=== PATIENT | female | born 1980 | race Caucasian/White ===

== ENCOUNTER 2018-07-03 15:19 | Emergency (ER) | payer MEDICAID ==
--- NOTE | 2018-07-03 15:43 | ED Physician Documentation ---
PD HPI URI - Stated complaint Stated Complaint: SORE THROAT - Chief complaint Chief Complaint: General - History obtained from History obtained from: Patient - History of Present Illness Timing - onset: How many weeks ago (few weeks of fatigue, sore throat, some cough, wheezing, and weight loss. Feels weight is due to throat hurting acutely, but has had some for few months. Is having stress of divorce and is moving here recently from [facility] [place]. No local PCP. Is out of her cholesterol med, albuterol inhaler and anxiety meds ("but I don't want to be on those"). Has had problems at time with thyroid. not currently on any meds. Feeling dehydrated the past few days particularly with poor PO intake due to sore throat.) Timing duration: Weeks Timing details: Gradual onset, Waxing and waning Associated symptoms: Nasal congestion, Sore throat, Swollen nodes, Dry cough, Dyspnea (wheezing at times). No: Fever, Chills, Sweats, Productive cough Contributing factors: COPD / asthma. No: Sick contact, Immunocompromised Worsened by: Activity Recently seen: Not recently seen Review of Systems Constitutional: reports: Myalgias, Fatigue, Weight Loss Nose: reports: Congestion. denies: Rhinorrhea / runny nose Throat: reports: Sore throat Cardiac: denies: Chest pain / pressure Respiratory: reports: Cough, Wheezing GI: reports: Diarrhea (loose at times, with history of irritable bowel). 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 : None HEENT: None Psych: Depression, Anxiety, Panic attacks Musculoskeletal: Osteoarthritis, Fibromyalgia, Chronic back pain, Other Derm: None - Past Surgical History Past Surgical History: Yes General: EGD /REMOTE SENSING TECHNICIAN: Dilation and currettage - Present Medications Home Medications: Ambulatory Orders Medication Instructions Recorded Confirmed Albuterol Sulf [Ventolin Hfa 1 - 2 puffs INH Q4HR PRN #1 inhaler 07/03/18 Inhaler] Amoxicillin 500 mg PO TID #21 capsule 07/03/18 Atorvastatin [Lipitor] 10 mg PO DAILY #30 tablet 07/03/18 Dexamethasone [Decadron] 4 mg PO DAILY #5 tablet 07/03/18 Ondansetron Odt [Zofran] 4 mg TL Q6H PRN #10 tablet 07/03/18 - Allergies Allergies/Adverse Reactions: Allergies Allergy/AdvReac Type Severity Reaction Status Date / Time gabapentin Allergy Severe Loss of Verified 02/22/16 10:13 Muscle Control tramadol Allergy Severe Dizziness/L Verified 02/22/16 10:13 ightheaded venlafaxine HCl * Allergy Severe Hallucinati Verified 07/03/18 15:29 [From Effexor] ons - Social History Does the pt smoke?: No Smoking Status: Never smoker Does the pt drink ETOH?: No Does the pt have substance abuse?: No - Immunizations Immunizations are current?: Yes PD ED PE NORMAL - Vitals Vital signs reviewed: Yes - General General: Alert and oriented X 3, No acute distress, Well developed/nourished - HEENT HEENT: Ears normal. No: Pharynx benign (redness posteriorly with some tonsillar exudates. No peritonsillar edema. ) - Neck Neck: Supple, no meningeal sign, Other (anterior adenopathy mild, but tender. ) - Cardiac Cardiac: No: RRR (tachycardic but regular) - Respiratory Respiratory: Clear bilaterally - Abdomen Abdomen: Soft, Non tender, No organomegaly - Derm Derm: Normal color, Warm and dry, No rash - Neuro Neuro: Alert and oriented X 3, No motor deficit, Normal speech Results - Vitals Vitals: Vital Signs - 24 hr 07/03/18 07/03/18 15:27 17:17 Temperature 36.7 C 36.5 C Heart Rate 130 H 115 H Respiratory 20 18 Rate Blood Pressure 147/88 H 133/75 H O2 Saturation 95 97 Oxygen O2 Source Room air - EKG (time done) 17:12 Rate: Rate (enter#) (115) Rhythm: Sinus tachycardia [place]: Normal Intervals: Normal VT QRS: Normal Ischemia: Normal ST segments. No: ST elevation c/w ischemia, ST depression - Labs Labs: Laboratory Tests 07/03/18 07/03/18 07/03/18 16:20 16:20 16:20 WBC 12.6 H RBC 4.28 Hgb 15.4 Hct 44.7 MCV 104.6 H MCH 36.0 H MCHC 34.4 RDW 14.1 Plt Count 255 MPV 8.1 Neut # (Auto) 9.2 H Lymph # (Auto) 2.6 [place] # (Auto) 0.5 Eos # (Auto) 0.1 Baso # (Auto) 0.1 Absolute Nucleated RBC 0.01 Nucleated RBC % 0.1 Sodium 139 Potassium 3.5 Chloride 98 L Carbon Dioxide 25 Anion Gap 16.0 H BUN 10 Creatinine 0.5 Estimated GFR (MDRD) 137 Glucose 167 H Calcium 9.0 Total Bilirubin 0.7 AST 95 H ALT 66 H Alkaline Phosphatase 62 Total Protein 7.7 Albumin 4.3 Globulin 3.4 Albumin/Globulin Ratio 1.3 Triglycerides 129 Cholesterol 298 H LDL Cholesterol, Calc 160 H VLDL Cholesterol 26 HDL Cholesterol 112 LDL/HDL Ratio 1.4 Cholesterol/HDL Ratio 2.7 Lipase 28 TSH 1.37 PD MEDICAL DECISION MAKING - ED course Complexity details: considered differential (with sore throat mainly here but s he says it is limiting her oral intake and feels dehydrated. No vomiting. weight loss and fatigue for 1-2 months.), d/w patient Departure - Departure Disposition: 01 Home, Self Care Clinical Impression: Weight loss Pharyngitis Qualifiers: Pharyngitis/tonsillitis etiology: unspecified etiology Qualified Code(s): J02.9 - Acute pharyngitis, unspecified Condition: Stable Record reviewed to determine appropriate education?: Yes Instructions: ED Strep Pharyngitis Poss Follow-Up: [facility] [Provider Group] [facility] [Provider Group] Prescriptions: Albuterol Sulf [Ventolin Hfa Inhaler] 1 - 2 puffs INH Q4HR PRN #1 inhaler PRN Reason: Shortness Of Air/Wheezing Amoxicillin 500 mg PO TID #21 capsule Atorvastatin [Lipitor] 10 mg PO DAILY #30 tablet Dexamethasone [Decadron] 4 mg PO DAILY #5 tablet Ondansetron Odt [Zofran] 4 mg TL Q6H PRN #10 tablet PRN Reason: Nausea / Vomiting Discharge Date/Time: 07/03/18 17:19
[2018-07-03] MEDS ORDERED: CHERRY SYRUP 10 ML UDC PO ONE (16:08)
[2018-07-03] MEDS ORDERED: DEXAMETHASONE 10 MG/ML VIAL PO STA (16:08)
[2018-07-03] MEDS ORDERED: AMOXICILLIN 250 MG CAPSULE PO STA (16:08)
[2018-07-03 16:32] LABS: BASOPHILS # (AUTO) 0.1 10^3/uL (0.0-0.1); BASOPHILS % (AUTO) 1.1 %; EOSINOPHILS # (AUTO) 0.1 10^3/uL (0.0-0.7); EOSINOPHILS % (AUTO) 0.9 %; HGB - HEMOGLOBIN 15.4 g/dL (12.0-16.0); LYMPHOCYTES # (AUTO) 2.6 10^3/uL (1.5-3.5); LYMPHOCYTES % (AUTO) 20.5 %; MEAN CORPUSCULAR HGB CONC 34.4 g/dL (32.0-36.0); MEAN CORPUSCULAR VOLUME 104.6 fL (81.0-99.0); MEAN PLATELET VOLUME 8.1 fL (7.9-10.8); MONOCYTES # (AUTO) 0.5 10^3/uL (0.0-1.0); MONOCYTES % (AUTO) 4.3 %; NEUTROPHILS # (AUTO) 9.2 10^3/uL (1.5-6.6); NEUTROPHILS % (AUTO) 73.2 %; PLT - PLATELET COUNT 255 10^3/uL (130-450); RED BLOOD COUNT 4.28 10^6/uL (4.20-5.40); RED CELL DISTRIBUTION WIDTH 14.1 % (12.0-15.0); WHITE BLOOD COUNT 12.6 x10^3/uL (4.8-10.8)
[2018-07-03 16:44] LABS: ALBUMIN 4.3 g/dL (3.2-5.5); ALBUMIN/GLOBULIN RATIO 1.3 (1.0-2.2); ALKALINE PHOSPHATASE 62 IU/L (42-121); ALT ALANINE AMINOTRANSFERASE 66 IU/L (10-60); AST ASPARTATE AMINOTRANSFERASE 95 IU/L (10-42); BILIRUBIN,TOTAL 0.7 mg/dL (0.2-1.0); BUN - BLOOD UREA NITROGEN 10 mg/dL (6-20); CARBON DIOXIDE - CO2 25 mmol/L (21-32); CHLORIDE 98 mmol/L (101-111); CHOL/HDL RATIO 2.7 (<4.4); CHOLESTEROL 298 mg/dL; CREATININE 0.5 mg/dL (0.4-1.0); GFR - MDRD 137 (>89); GLUCOSE 167 mg/dL (70-100); HDL CHOLESTEROL 112 mg/dL; LDL CHOLESTEROL,CALCULATED 160 mg/dL; LDL/HDL RATIO 1.4 (<4.4); LIPASE 28 U/L (22-51); SODIUM 139 mmol/L (135-145); TOTAL PROTEIN 7.7 g/dL (6.7-8.2); VLDL CHOLESTEROL 26 mg/dL
[2018-07-03 17:19] VITALS: BP 133/75
== END 2018-07-03 17:19 | disposition home or self-care (01) ==
LOC: ED 15:19
DX: R63.4 Abnormal weight loss (principal); J02.9 Acute pharyngitis, unspecified
CPT/HCPCS: 36415; 80053; 80061; 83690; 84443; 85025; 93005; 99283; A9270; 83721

== ENCOUNTER 2019-01-12 16:44 | Emergency (ER) | payer MEDICAID ==
--- NOTE | 2019-01-12 17:12 | ED Physician Documentation ---
History of Present Illness - Stated complaint Stated Complaint: HEAD INJ - Chief complaint Chief Complaint: Trauma Hd/Nk - Additonal information Additional information: This is a 38-year-old female who presents due to head trauma a week ago. Patient was at a friend's house and she became dizzy after standing up too quickly and fell hitting the right side of her head. She noticed some swelling over the right frontal skull in the subsequent days, and she has had bruising that extended below both of her eyes, started just on the right eye. She also noticed that the right eye has a bit of redness on it as well. Denies any neck pain, chest pain, belly discomfort. She is not on any blood thinners. No confusion, further syncope, or severe headache. No weakness or numbness. She was self-treating at home but her mother made her come in to get checked out. 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 : None HEENT: None Psych: Depression, Anxiety, Panic attacks Musculoskeletal: Osteoarthritis, Chronic back pain, Fibromyalgia, Other Derm: None - Past Surgical History Past Surgical History: Yes General: EGD /INTERIOR DESIGN PROFESSIONAL: Dilation and currettage - Present Medications Home Medications: Ambulatory Orders Medication Instructions Recorded Confirmed Albuterol Sulf [Ventolin Hfa 1 - 2 puffs INH Q4HR PRN #1 inhaler 07/03/18 Inhaler] Amoxicillin 500 mg PO TID #21 capsule 07/03/18 Atorvastatin [Lipitor] 10 mg PO DAILY #30 tablet 07/03/18 Ondansetron Odt [Zofran] 4 mg TL Q6H PRN #10 tablet 07/03/18 dexAMETHasone [Decadron] 4 mg PO DAILY #5 tablet 07/03/18 - Allergies Allergies/Adverse Reactions: Allergies Allergy/AdvReac Type Severity Reaction Status Date / Time gabapentin Allergy Severe Loss of Verified 01/12/19 17:00 Muscle Control tramadol Allergy Severe Dizziness/L Verified 01/12/19 17:00 ightheaded venlafaxine HCl * Allergy Severe Hallucinati Verified 01/12/19 17:00 [From Effexor] ons - Social History Does the pt smoke?: No Smoking Status: Never smoker Does the pt drink ETOH?: Yes Does the pt have substance abuse?: No - Immunizations Immunizations are current?: Yes PD ED PE NORMAL - Vitals Vital signs reviewed: Yes - General General: Alert and oriented X 3 - HEENT HEENT: Other (Large 3 cm x 7 cm hematoma over the right frontal forehead. There is ecchymosis below the bilateral eyes. There is some dependent ecchymosis over the right face.) - Neck Neck: Supple, no meningeal sign, No bony TTP, Other (Normal painless range of motion) - Cardiac Cardiac: RRR - Respiratory Respiratory: No respiratory distress, Clear bilaterally - Abdomen Abdomen: Non tender, Non distended - Back Back: No spinal TTP - Extremities Extremities: No deformity - Neuro Neuro: Alert and oriented X 3, recordings librarian 2-12 intact, No motor deficit, No sensory deficit, Normal speech Results - Vitals Vitals: Vital Signs - 24 hr 01/12/19 01/12/19 01/12/19 18:28 19:25 19:35 Heart Rate 90 94 85 Respiratory 16 28 H 16 Rate Blood Pressure 118/85 H 117/79 118/79 O2 Saturation 97 97 97 Oxygen O2 Source Room air - EKG (time done) 18: 08 Other comments: Other comments (Rate 94, rhythm sinus, no ST segment elevation or depression. Intervals within normal limits.) - Labs Labs: Microbiology 01/12/19 18:25 Urine Culture - Preliminary Urine,Clean Catch Escherichia Coli Laboratory Tests 01/12/19 01/12/19 01/12/19 17:08 17:08 17:08 WBC 8.9 RBC 4.07 L Hgb 14.9 Hct 42.3 MCV 103.9 H MCH 36.6 H MCHC 35.2 RDW 13.2 Plt Count 242 MPV 10.3 Neut # (Auto) 5.0 Lymph # (Auto) 3.0 [place] # (Auto) 0.7 Eos # (Auto) 0.1 Baso # (Auto) 0.1 Absolute Nucleated RBC 0.00 Nucleated RBC % 0.0 PT 11.3 INR 1.0 Sodium 142 Potassium 3.2 L Chloride 102 Carbon Dioxide 30 Anion Gap 10.0 BUN 12 Creatinine 0.6 Estimated GFR (MDRD) 111 Glucose 85 Calcium 9.7 Total Bilirubin 0.7 AST 92 H ALT 68 H Alkaline Phosphatase 54 Total Protein 8.3 H Albumin 4.6 Globulin 3.7 Albumin/Globulin Ratio 1.2 Lipase 37 TSH Serum HCG, Qual Urine Color Urine Clarity Urine pH Ur Specific [place] Urine Protein Urine Glucose (UA) Urine Ketones Urine Occult Blood Urine Nitrite Urine Bilirubin Urine Urobilinogen Ur Leukocyte Esterase Urine RBC Urine WBC Ur Squamous Epith Cells Urine Bacteria Urine Mucus Ur Microscopic Review Urine Culture Comments Ethyl Alcohol 47.6 01/12/19 01/12/19 01/12/19 17:08 17:08 18:25 WBC RBC Hgb Hct MCV MCH MCHC RDW Plt Count MPV Neut # (Auto) Lymph # (Auto) [place] # (Auto) Eos # (Auto) Baso # (Auto) Absolute Nucleated RBC Nucleated RBC % PT INR Sodium Potassium Chloride Carbon Dioxide Anion Gap BUN Creatinine Estimated GFR (MDRD) Glucose Calcium Total Bilirubin AST ALT Alkaline Phosphatase Total Protein Albumin Globulin Albumin/Globulin Ratio Lipase TSH 3.40 Serum HCG, Qual NEGATIVE Urine Color YELLOW Urine Clarity CLEAR Urine pH 6.0 Ur Specific [place] 1.025 Urine Protein NEGATIVE Urine Glucose (UA) NEGATIVE Urine Ketones TRACE Urine Occult Blood NEGATIVE Urine Nitrite POSITIVE H Urine Bilirubin SMALL H Urine Urobilinogen 0.2 (NORMAL) Ur Leukocyte Esterase NEGATIVE Urine RBC None Seen Urine WBC 4-5 Ur Squamous Epith Cells FEW Squamous Urine Bacteria Many H Urine Mucus Few Strands Ur Microscopic Review INDICATED Urine Culture Comments INDICATED Ethyl Alcohol - Rads (name of study) Ct Head Radiology: Other (No intracranial abnormality) Ct face Radiology: Other (No acute bony abnormality) CXR Radiology: Other (No acute abnormality) PD MEDICAL DECISION MAKING - ED course Complexity details: considered differential (Fracture, contusion, ICH, hematoma, hypovolemia, dysrhythmia, anemia, electrolyte abnormality) ED course: Pt presents with a large hematoma, CT head and face show no broken bones or intracranial abnormality. I discussed supportive care for the hematoma and PCP follow up. She also has a mild subconjunctival hemorrhage without signs of globe damage or vision change. Regarding her syncopal event, her EKG is unrevealing, labs also unremarkable. It sounds like she had an episode of orthostasis, and did not have concerning symptoms such as chest pain or shortness of breath. The syncope might have also been related to alcohol consumption. Does not appear to be seizure, dysrhtyhmia, or PE by history. She does have mild AST and ALT elevations that are consistent with mild alcohol hepatitis. She was previously sober but has began drinking again recently. I discussed results with patient and recommended ceasing drinking and PCP follow up. Pt was discharged home in good condition. UA is nitrite positive. I called patient with this result and prescribed Keflex 500mg QID x 5 days to the [facility]. She will start the antibiotic and will return to the ED with any worsening. Departure - Departure Disposition: 01 Home, Self Care Clinical Impression: Hematoma Condition: Good Instructions: ED Hematoma Follow-Up: Your,PCP [Other] - Within 1 week Comments: Your CT scan does not show signs of fracture or bleed within the head. You do have a collection of blood clot/a hematoma on the outside of your head. This will resolve over several weeks, and you will have bruising through your face as gravity pulls the blood and breakdown products of the blood down. You may try warm compresses. You may take Tylenol or ibuprofen for discomfort. If you develop severe headache, or other concerning symptoms please return to the emergency department. Also return if you see black skin over the hematoma Discharge Date/Time: 01/12/19 19:46
[2019-01-12 17:19] LABS: BASOPHILS # (AUTO) 0.1 10^3/uL (0.0-0.1); BASOPHILS % (AUTO) 0.7 %; EOSINOPHILS # (AUTO) 0.1 10^3/uL (0.0-0.7); EOSINOPHILS % (AUTO) 1.1 %; HGB - HEMOGLOBIN 14.9 g/dL (12.0-16.0); LYMPHOCYTES % (AUTO) 33.9 %; MEAN CORPUSCULAR HEMOGLOBIN 36.6 pg (27.0-31.0); MEAN CORPUSCULAR HGB CONC 35.2 g/dL (32.0-36.0); MEAN CORPUSCULAR VOLUME 103.9 fL (81.0-99.0); MEAN PLATELET VOLUME 10.3 fL (7.9-10.8); MONOCYTES # (AUTO) 0.7 10^3/uL (0.0-1.0); NEUTROPHILS % (AUTO) 55.8 %; PLT - PLATELET COUNT 242 10^3/uL (130-450); RED BLOOD COUNT 4.07 10^6/uL (4.20-5.40); RED CELL DISTRIBUTION WIDTH 13.2 % (12.0-15.0); WHITE BLOOD COUNT 8.9 x10^3/uL (4.8-10.8)
[2019-01-12 17:25] LABS: PT - PROTHROMBIN TIME 11.3 secs (9.9-12.6)
[2019-01-12 17:33] LABS: ALBUMIN 4.6 g/dL (3.2-5.5); ALBUMIN/GLOBULIN RATIO 1.2 (1.0-2.2); BILIRUBIN,TOTAL 0.7 mg/dL (0.2-1.0); CALCIUM 9.7 mg/dL (8.5-10.3); CREATININE 0.6 mg/dL (0.4-1.0); TOTAL PROTEIN 8.3 g/dL (6.7-8.2)
[2019-01-12 17:42] LABS: HCG,QUALITATIVE BLOOD NEGATIVE
--- NOTE | 2019-01-12 18:07 | CT Report ---
Reason: Fall, large hematoma Procedure Date: 01/12/2019 Accession Number: [id number] / [id number] Procedure: CT - HEAD WO CPT Code: Final Report FULL RESULT: EXAM: CT HEAD EXAM DATE: 01/12/2019 05:14 PM. CLINICAL HISTORY: Fall. Large right frontal hematoma. COMPARISON: MRI BRAIN 04/12/2011 12:30 PM. TECHNIQUE: Multiaxial CT images were obtained from the foramen magnum to the vertex. Reformats: Sagittal and coronal. IV contrast: None. In accordance with CT protocol optimization, one or more of the following dose reduction techniques were utilized for this exam: automated exposure control, adjustment of mA and/or KV based on patient size, or use of iterative reconstructive technique. FINDINGS: Parenchyma: No intraparenchymal hemorrhage, mass effect, or CT findings of evolving acute/subacute infarct. Brannon-white differentiation is distinct. Extraaxial Spaces: Normal for age. No subdural or epidural collections identified. Ventricles: The ventricles and basal cisterns are patent. No hydrocephalus or midline shift. Sinuses: The visualized paranasal sinuses and mastoid air cells are clear. Bones: No evidence of fracture or calvarial defect. Other: Right frontal scalp hematoma. IMPRESSION: 1. Right frontal scalp hematoma. 2. No acute intracranial abnormality. RADIA
--- NOTE | 2019-01-12 18:08 | XRAY Report ---
Reason: syncope, fall Procedure Date: 01/12/2019 Accession Number: [id number] / [id number] Procedure: XR - Chest 2 View X-Ray CPT Code: 98687 Final Report FULL RESULT: EXAM: CHEST RADIOGRAPHY EXAM DATE: 01/12/2019 05:26 PM. CLINICAL HISTORY: Dizziness with fall a week ago. COMPARISON: XR CHEST PA AND LAT 06/16/2011 1:03 PM. TECHNIQUE: 2 views. FINDINGS: Lungs/Pleura: Normal volumes. No focal opacities are evident. No pleural effusion or pneumothorax. Mediastinum: Normal cardiomediastinal contour. Other: Minimal left convex curvature of the lower thoracic/upper lumbar spine. No acute bony abnormality is evident. IMPRESSION: No acute abnormality. RADIA
--- NOTE | 2019-01-12 18:28 | CT Report ---
Reason: Fall, large hematoma Procedure Date: 01/12/2019 Accession Number: [id number] / [id number] Procedure: CT - MAXILLOFACIAL WO CPT Code: Final Report FULL RESULT: EXAM: CT MAXILLOFACIAL WITHOUT CONTRAST EXAM DATE: 01/12/2019 05:23 PM. CLINICAL HISTORY: Fall, large hematoma. COMPARISONS: HEAD W/O 01/12/2019 5:14 PM. TECHNIQUE: Thin-section axial images were acquired of the face without contrast. Post-processing: Coronal and sagittal reformats. Other: None. In accordance with CT protocol optimization, one or more of the following dose reduction techniques were utilized for this exam: automated exposure control, adjustment of mA and/or KV based on patient size, or use of iterative reconstructive technique. FINDINGS: Soft Tissue: Moderate right periorbital subcutaneous hematoma. Orbits: Symmetric and unremarkable. Bones: No acute fracture or suspicious osseous lesion. Temporomandibular Joints: The temporomandibular joints are symmetric and normally located. Sinuses: Minimal sinus mucosal disease. Other: There is multifocal dental and periodontal disease. IMPRESSION: 1. No acute fracture. 2. Right periorbital hematoma. RADIA
[2019-01-12 18:33] LABS: GLUCOSE, URINE (UA) NEGATIVE (NEGATIVE); KETONES,URINE (UA) TRACE mg/dL (NEGATIVE); LEUKOCYTE ESTERASE, URINE NEGATIVE (NEGATIVE); NITRITE,URINE POSITIVE (NEGATIVE); OCCULT BLOOD,URINE NEGATIVE (NEGATIVE); PROTEIN,URINE NEGATIVE (NEGATIVE); UROBILINOGEN,URINE 0.2 (NORMAL) E.U./dL (NORMAL)
[2019-01-12 18:49] LABS: BILIRUBIN,URINE SMALL (NEGATIVE); CLARITY,URINE CLEAR (CLEAR); ICTOTEST,URINE POSITIVE
[2019-01-12 18:57] LABS: BACTERIA,URINE Many /HPF (None Seen); MUCUS,URINE Few Strands; RBC,URINE None Seen /HPF (0-5); SQUAMOUS EPITHELIAL CELL,UR FEW Squamous (<= Few)
[2019-01-12 19:36] VITALS: BP 118/79
== END 2019-01-12 19:46 | disposition home or self-care (01) ==
LOC: ED 16:44
DX: S00.83XA Contusion of other part of head, initial encounter (principal); S00.11XA Contusion of right eyelid and periocular area, initial encounter; H11.31 Conjunctival hemorrhage, right eye; W18.30XA Fall on same level, unspecified, initial encounter; Y92.009 Unspecified place in unspecified non-institutional (private) residence as the place of occurrence of the external cause; R55 Syncope and collapse; R74.8 Abnormal levels of other serum enzymes; R82.998 Other abnormal findings in urine
CPT/HCPCS: 36415; 70450; 70486; 71046; 80053; 80320; 81001; 81003; 83690; 84443; 84703; 85025; 85610; 87086; 87181; 93005; 99283; 99284

== ENCOUNTER 2019-03-30 11:25 | Emergency (ER) | payer MEDICAID ==
[2019-03-30 12:01] LABS: GLUCOSE, URINE (UA) NEGATIVE (NEGATIVE); KETONES,URINE (UA) NEGATIVE (NEGATIVE); LEUKOCYTE ESTERASE, URINE NEGATIVE (NEGATIVE); NITRITE,URINE NEGATIVE (NEGATIVE); OCCULT BLOOD,URINE TRACE-INTA (NEGATIVE); PROTEIN,URINE TRACE mg/dL (NEGATIVE); UROBILINOGEN,URINE 0.2 (NORMAL) E.U./dL (NORMAL)
[2019-03-30 12:04] LABS: BILIRUBIN,URINE NEGATIVE (NEGATIVE); CLARITY,URINE CLEAR (CLEAR); HCG UR QUAL NEGATIVE; ICTOTEST,URINE NEGATIVE
[2019-03-30 12:43] LABS: BASOPHILS # (AUTO) 0.1 10^3/uL (0.0-0.1); BASOPHILS % (AUTO) 0.9 %; EOSINOPHILS # (AUTO) 0.1 10^3/uL (0.0-0.7); EOSINOPHILS % (AUTO) 1.9 %; HGB - HEMOGLOBIN 15.8 g/dL (12.0-16.0); LYMPHOCYTES # (AUTO) 2.9 10^3/uL (1.5-3.5); LYMPHOCYTES % (AUTO) 41.2 %; MEAN CORPUSCULAR HEMOGLOBIN 35.4 pg (27.0-31.0); MEAN CORPUSCULAR VOLUME 101.3 fL (81.0-99.0); MEAN PLATELET VOLUME 9.6 fL (7.9-10.8); MONOCYTES # (AUTO) 0.5 10^3/uL (0.0-1.0); MONOCYTES % (AUTO) 7.6 %; NEUTROPHILS # (AUTO) 3.4 10^3/uL (1.5-6.6); NEUTROPHILS % (AUTO) 48.1 %; PLT - PLATELET COUNT 299 10^3/uL (130-450); RED BLOOD COUNT 4.46 10^6/uL (4.20-5.40); RED CELL DISTRIBUTION WIDTH 12.7 % (12.0-15.0)
[2019-03-30] MEDS ORDERED: FOLIC ACID INJ 1 MG, THIAMINE INJ 100 MG, MAGNESIUM SULFATE 2 GM, MULTIVITAMIN 10 ML in... IV STA ×5 (12:50)
[2019-03-30] MEDS ORDERED: DEXAMETHASONE 10 MG/ML VIAL IVP STA (12:51)
[2019-03-30] MEDS ORDERED: cefTRIAXone 1 GM in SODIUM CHLORIDE 0.9% MINIBAG 100 ML IV STA (12:51)
--- NOTE | 2019-03-30 12:54 | ED Physician Documentation ---
History of Present Illness - Stated complaint Stated Complaint: BLURRY VISION - Chief complaint Chief Complaint: Neuro - History obtained from History obtained from: Patient, Family - History of Present Illness Timing: How many weeks ago (3) - Additonal information Additional information: 39-year-old alcoholic female has a new job and she is having to work during the day and is not able to use her usual morning maintenance drinking. She has developed increased symptoms of blurring of her vision and being off balance. She indicates that normally she would drink about fifth per day of vodka and she would do this beginning at 7 or 8:00 in the morning. She states now she is going to work and has to start drinking in the evening when she gets off work. She is having some trouble with withdrawal symptoms in the early afternoon. She has never had withdrawal seizure. She is continuing to drink and thinks she is drinking almost as much as she usually did. She states that she drinks a lot of water and is up to go to the bathroom a lot of times during the night.She indicates that she is having some trouble eating and that she just has no appetite. She is continuing to drink and prefers alcohol over food. She is wondering if there is a problem with this. Review of Systems Constitutional: reports: Fatigue. denies: Fever, Chills Eyes: reports: Other (blurring of vision is on and off). denies: Decreased vision Ears: reports: Ear pain Nose: reports: Rhinorrhea / runny nose, Congestion Throat: denies: Sore throat Cardiac: denies: Chest pain / pressure, Palpitations Respiratory: reports: Cough. denies: Dyspnea GI: denies: Abdominal Pain, Nausea, Vomiting : reports: Frequency. denies: Dysuria Skin: denies: Rash Musculoskeletal: denies: Neck pain, Back pain, Extremity pain Neurologic: reports: Generalized weakness. denies: Focal weakness, Numbness PD PAST MEDICAL HISTORY - Past Medical History Cardiovascular: High cholesterol Respiratory: None Endocrine/Autoimmune: None GI: Other EXTERNAL GRINDER TENDER: None : None HEENT: None Psych: Depression, Anxiety, Panic attacks Musculoskeletal: Osteoarthritis, Chronic back pain, Fibromyalgia, Other Derm: None - Past Surgical History Past Surgical History: Yes General: EGD /EXTERNAL GRINDER TENDER: Dilation and currettage - Present Medications Home Medications: Ambulatory Orders Medication Instructions Recorded Confirmed Amox/Clav 875/125 [Augmentin] 1 each PO Q12H #20 tablet 03/30/19 Thiamine [Vitamin B-1] 100 mg PO TID #40 tablet 03/30/19 chlordiazePOXIDE [Librium] 25 - 50 mg PO Q6H PRN #30 capsule 03/30/19 - Allergies Allergies/Adverse Reactions: Allergies Allergy/AdvReac Type Severity Reaction Status Date / Time gabapentin Allergy Severe Loss of Verified 03/30/19 11:37 Muscle Control tramadol Allergy Severe Dizziness/L Verified 03/30/19 11:37 ightheaded venlafaxine HCl * Allergy Severe Hallucinati Verified 03/30/19 11:37 [From Effexor] ons - Social History Does the pt smoke?: No Smoking Status: Never smoker Does the pt drink ETOH?: Yes Does the pt have substance abuse?: No - Immunizations Immunizations are current?: Yes PD ED PE NORMAL - Vitals Vital signs reviewed: Yes (tachy and hypertensive both mild ) - General General: Alert and oriented X 3, No acute distress, Well developed/nourished, Other (Thin 39-year-old female with mild shakes is conversant and an adequate historian.) - HEENT HEENT: Atraumatic, PERRL, EOMI, Other (both TM's are inflamed along the umbo wit h rounding of the umbo on the right. There are 3 beats of nystagmus laterally bilaterally and symmetrically.) - Neck Neck: Supple, no meningeal sign, No bony TTP - Cardiac Cardiac: No murmur, Other (tachy to 110) - Respiratory Respiratory: No respiratory distress, Clear bilaterally - Abdomen Abdomen: Soft, Non tender - Back Back: No CVA TTP, No spinal TTP - Derm Derm: Normal color, Warm and dry, No rash - Extremities Extremities: No deformity, Normal ROM s pain, No edema, No calf tenderness / cord - Neuro Neuro: Alert and oriented X 3, director digital 2-12 intact, No motor deficit, No sensory deficit, Normal speech Eye Opening: Spontaneous Motor: Obeys Commands Verbal: Oriented GCS Score: 15 - Psych Psych: Normal mood, Normal affect Results - Vitals Vitals: Vital Signs - 24 hr 03/30/19 03/30/19 03/30/19 11:33 14:03 14:50 Temperature 36.9 C Heart Rate 102 H 100 93 Respiratory 18 18 18 Rate Blood Pressure 132/90 H 116/80 117/74 O2 Saturation 98 98 96 03/30/19 15:46 Temperature Heart Rate 96 Respiratory 18 Rate Blood Pressure 112/82 H O2 Saturation 96 Oxygen O2 Source Room air - Labs Labs: Laboratory Tests 03/30/19 03/30/19 03/30/19 11:40 12:35 12:35 WBC 7.0 RBC 4.46 Hgb 15.8 Hct 45.2 MCV 101.3 H MCH 35.4 H MCHC 35.0 RDW 12.7 Plt Count 299 MPV 9.6 Neut # (Auto) 3.4 Lymph # (Auto) 2.9 Mower # (Auto) 0.5 Eos # (Auto) 0.1 Baso # (Auto) 0.1 Absolute Nucleated RBC 0.00 Nucleated RBC % 0.0 Sodium 140 Potassium 3.4 L Chloride 99 L Carbon Dioxide 28 Anion Gap 13.0 BUN 8 Creatinine 0.4 Estimated GFR (MDRD) 177 Glucose 94 POC Whole Bld Glucose Calcium 8.9 Total Bilirubin 0.8 AST 134 H ALT 101 H Alkaline Phosphatase 54 Total Protein 8.3 H Albumin 4.7 Globulin 3.6 Albumin/Globulin Ratio 1.3 Lipase 28 Urine Color DARK YELLOW Urine Clarity CLEAR Urine pH 6.0 Ur Specific [place] 1.025 Urine Protein TRACE Urine Glucose (UA) NEGATIVE Urine Ketones NEGATIVE Urine Occult Blood TRACE-INTA Urine Nitrite NEGATIVE Urine Bilirubin NEGATIVE Urine Urobilinogen 0.2 (NORMAL) Ur Leukocyte Esterase NEGATIVE Ur Microscopic Review NOT INDICATED Urine Culture Comments NOT INDICATED Urine HCG, Qual NEGATIVE Ethyl Alcohol 03/30/19 03/30/19 12:35 12:40 WBC RBC Hgb Hct MCV MCH MCHC RDW Plt Count MPV Neut # (Auto) Lymph # (Auto) Mower # (Auto) Eos # (Auto) Baso # (Auto) Absolute Nucleated RBC Nucleated RBC % Sodium Potassium Chloride Carbon Dioxide Anion Gap BUN Creatinine Estimated GFR (MDRD) Glucose POC Whole Bld Glucose 86 Calcium Total Bilirubin AST ALT Alkaline Phosphatase Total Protein Albumin Globulin Albumin/Globulin Ratio Lipase Urine Color Urine Clarity Urine pH Ur Specific [place] Urine Protein Urine Glucose (UA) Urine Ketones Urine Occult Blood Urine Nitrite Urine Bilirubin Urine Urobilinogen Ur Leukocyte Esterase Ur Microscopic Review Urine Culture Comments Urine HCG, Qual Ethyl Alcohol 241.4 Procedures - IVC sono (time) 1250 Bedside IVC sono: IVC measures (cm) (1.73), Euvolemia PD MEDICAL DECISION MAKING - ED course Complexity details: reviewed old records, reviewed results, re-evaluated patient, considered differential, d/w patient, d/w family ED course: 39-year-old female with admitted excessive alcohol use has some blurring of her vision and nystagmus on examination. I suspect she may have a thiamine deficiency and she is administered a banana bag intravenously. She does have otitis on exam she is administered dexamethasone and Rocephin as well. She is not dehydrated on interrogation of the inferior vena cava. I suspect her general complaints have to do with alcohol and alcohol withdrawal. The social service assistant is consulted in the case and provides some additional alcohol resources to the patient. She has had interaction with alcohol resources previously. She has had some experience with Librium which she felt was very helpful and we have written a prescription for some Librium for the patient. I have written her a note for work for 5 days and she wants to try to work while she is withdrawing from alcohol. I did advise against this. Departure - Departure Disposition: 01 Home, Self Care Clinical Impression: Alcoholism Otitis media Qualifiers: Otitis media type: suppurative Chronicity: acute Laterality: bilateral Recurrence: non-recurrent Spontaneous tympanic membrane rupture: without spontaneous rupture Qualified Code(s): H66.003 - Acute suppurative otitis media without spontaneous rupture of ear drum, bilateral Condition: Stable Instructions: ED Withdrawal Alcohol, ED Otitis Media Acute Adult, ED Alcohol Abuse Follow-Up: [facility] [Provider Group] Prescriptions: Amox/Clav 875/125 [Augmentin] 1 each PO Q12H #20 tablet chlordiazePOXIDE [Librium] 25 - 50 mg PO Q6H PRN #30 capsule PRN Reason: withdrawal symptoms Thiamine [Vitamin B-1] 100 mg PO TID #40 tablet Forms: Activity restrictions Discharge Date/Time: 03/30/19 15:57
[2019-03-30 13:02] LABS: ALBUMIN 4.7 g/dL (3.2-5.5); ALBUMIN/GLOBULIN RATIO 1.3 (1.0-2.2); BILIRUBIN,TOTAL 0.8 mg/dL (0.2-1.0); CALCIUM 8.9 mg/dL (8.5-10.3); CREATININE 0.4 mg/dL (0.4-1.0); TOTAL PROTEIN 8.3 g/dL (6.7-8.2)
[2019-03-30] MEDS ORDERED: POTASSIUM CHLORIDE 20 MEQ TABLET PO STA (13:34)
[2019-03-30 15:46] VITALS: BP 112/82
== END 2019-03-30 15:57 | disposition home or self-care (01) ==
LOC: ED 11:25
DX: F10.239 Alcohol dependence with withdrawal, unspecified (principal); H66.003 Acute suppurative otitis media without spontaneous rupture of ear drum, bilateral
CPT/HCPCS: 36415; 80053; 80320; 81003; 81025; 83690; 85025; 96365; 96367; 96375; 99284; A9270; J3411; 81001; 87086

== ENCOUNTER 2019-05-24 07:45 | Outpatient (CLI) | payer MEDICAID ==
[2019-05-24 10:16] LABS: BASOPHILS # (AUTO) 0.1 10^3/uL (0.0-0.1); BASOPHILS % (AUTO) 0.9 %; EOSINOPHILS # (AUTO) 0.2 10^3/uL (0.0-0.7); EOSINOPHILS % (AUTO) 2.8 %; HGB - HEMOGLOBIN 15.1 g/dL (12.0-16.0); LYMPHOCYTES # (AUTO) 2.6 10^3/uL (1.5-3.5); LYMPHOCYTES % (AUTO) 30.6 %; MEAN CORPUSCULAR HEMOGLOBIN 34.8 pg (27.0-31.0); MEAN CORPUSCULAR VOLUME 99.3 fL (81.0-99.0); MEAN PLATELET VOLUME 9.6 fL (7.9-10.8); MONOCYTES # (AUTO) 0.6 10^3/uL (0.0-1.0); NEUTROPHILS % (AUTO) 57.9 %; PLT - PLATELET COUNT 385 10^3/uL (130-450); RED BLOOD COUNT 4.34 10^6/uL (4.20-5.40); RED CELL DISTRIBUTION WIDTH 12.4 % (12.0-15.0); WHITE BLOOD COUNT 8.6 x10^3/uL (4.8-10.8)
[2019-05-24 10:32] LABS: ALBUMIN 4.2 g/dL (3.2-5.5); ALBUMIN/GLOBULIN RATIO 1.2 (1.0-2.2); ALKALINE PHOSPHATASE 35 IU/L (42-121); ALT ALANINE AMINOTRANSFERASE 15 IU/L (10-60); AST ASPARTATE AMINOTRANSFERASE 21 IU/L (10-42); BILIRUBIN,TOTAL 0.3 mg/dL (0.2-1.0); BUN - BLOOD UREA NITROGEN 16 mg/dL (6-20); CALCIUM 9.1 mg/dL (8.5-10.3); CARBON DIOXIDE - CO2 25 mmol/L (21-32); CHLORIDE 105 mmol/L (101-111); CHOL/HDL RATIO 4.2 (<4.4); CHOLESTEROL 233 mg/dL; CREATININE 0.6 mg/dL (0.4-1.0); GFR - MDRD 111 (>89); GLUCOSE 98 mg/dL (70-100); HDL CHOLESTEROL 56 mg/dL; LDL CHOLESTEROL,CALCULATED 161 mg/dL; LDL/HDL RATIO 2.9 (<4.4); SODIUM 137 mmol/L (135-145); TOTAL PROTEIN 7.6 g/dL (6.7-8.2); VLDL CHOLESTEROL 16 mg/dL
== END 2019-05-24 07:46 | disposition home or self-care (01) ==
LOC: LAB.S 07:45
PROVIDERS: ATTEND Registered Nurse
DX: Z00.00 Encounter for general adult medical examination without abnormal findings (principal); K76.9 Liver disease, unspecified
CPT/HCPCS: 36415; 80053; 80061; 83721; 84443; 85025

== ENCOUNTER 2019-05-24 08:09 | Outpatient (CLI) | payer MEDICAID ==
--- NOTE | 2019-05-28 15:14 | Mammography Report ---
Reason: SCREENING MAMMO Procedure Date: 05/24/2019 Accession Number: [id number] / [id number] Procedure: MGS - Screening Mammo Dig Bilat CPT Code: Final Report FULL RESULT: EXAM: Screening Mammo Dig Bilat DATE: 05/24/2019 8:36 AM CLINICAL HISTORY: Routine screening TECHNIQUE: (B) - Bilateral CC and MLO views were obtained. COMPARISON: 01/14/2014 PARENCHYMAL PATTERN: (A) - The breasts demonstrate scattered fibroglandular densities bilaterally. FINDINGS: Right breast: No interval change. There are no suspicious masses, calcifications, skin thickening or areas of distortion. Left breast: New 1 cm cluster of microcalcifications 9:00 position 7 cm from the nipple. At least 2 nodular areas of increased density seen in the upper outer breast with one area of possible architectural distortion seen on the MLO projection only. Suggest additional evaluation of the left breast by repeat CC and MLO views with tomography, true lateral view with tomography, and magnification views. Additional spot compression views and ultrasound may also be needed. , IMPRESSION: Incomplete examination. BI-RADS category 0. Needs additional imaging left breast. Negative right breast. RECOMMENDATION: ([facility]) - Additional views using both Mammography and Ultrasound recommended. Left breast BI-RADS CATEGORY: (0) - Incomplete Examination - need additional evaluation. STANDARD QUALIFYING STATEMENTS: 1. This examination was not reviewed with the aid of Computer-Aided Detection (CAD). 2. A negative or benign imaging report should not preclude biopsy if clinically suspicious findings are present. 3. Dense breasts may obscure an underlying neoplasm. 4. This examination was reviewed without the aid of 3D breast imaging (tomosynthesis).
== END 2019-05-24 08:10 | disposition home or self-care (01) ==
LOC: DI.S 08:09
PROVIDERS: ATTEND Registered Nurse
DX: Z12.31 Encounter for screening mammogram for malignant neoplasm of breast (principal); R92.0 Mammographic microcalcification found on diagnostic imaging of breast
CPT/HCPCS: 77067

== ENCOUNTER 2019-11-12 14:06 | Outpatient (CLI) | payer MEDICAID ==
[2019-11-12] MEDS ORDERED: BUFFERED LIDOCAINE 10 ML SYRINGE ONE (14:50)
[2019-11-12] MEDS ORDERED: BUPIVACAINE 0.5% PF 30 ML VIAL SUBQ SCH (15:00)
[2019-11-12] MEDS ORDERED: BUFFERED LIDOCAINE 10 ML SYRINGE IU ONE (17:14)
--- NOTE | 2019-11-15 11:10 | Mammography Report ---
DIGITAL TOMOGRAPHIC MAMMOGRAPHY GUIDED STEREOTACTIC GUIDED BIOPSY LEFT BREAST WITH MARKING DEVICE INS ERTED AND POST DIGITAL MAMMOGRAPHIC IMAGING AND RADIOGRAPHIC SPECIMEN IMAGIN11/12/2019 CLINICAL: Microcalcifications left breast. Correlation is made to exams dated: 09/27/2019 ultrasound, 09/27/2019 mammogram, 05/24/2019 mammogram, 01/14/2014 ultrasound, and 01/14/2014 mammogram - [facility]. A stereotactic guided biopsy was performed for the area of grouped calcifications located in the left breast at 11 o'clock middle depth. This was described on the previous mammography report. The skin was prepped in the usual manner. Local anesthetic was administered to the access site. A skin stacie was made in the breast. The abnormality was approached from the craniocaudal aspect using an uprigh t digital tomographic mammography unit. A 9 gauge biopsy needle was placed adjacent to the abnormali ty under computer guidance and confirmatory stereotactic mammography images were obtained to document needle placement. Once the needle was documented to be in the correct location, eight specimens wer e obtained using Siemens upright tomosynthesis biopsy unit. A clip was inserted into the biopsy cavi ty. A sterile dressing was applied to the access site. Post procedure digital mammographic imaging demonstrates the location device at the targeted area. The specimens were sent to the laboratory for pathological analysis. IMPRESSION: STEREOTACTIC GUIDED BIOPSY BENIGN Stereotactic guided biopsy of the area of grouped calcifications in the left breast at 11 o'clock mid dle depth was successful. The imaged specimens includes the calcifications. Pathology indicates arina ign breast tissue with micro-calcifications and no atypia present. Pathology results are concordant with imaging findings. Two of eight specimens have micro calcifications. A follow-up left mammogram in 6 months is recommended to demonstrate stability. Additionally, a left breast ultrasound is also recommended in 6 months to document stability of a sep arate probably benign finding at the 1 o'clock posterior depth. This exam was interpreted at Station ID: [id number]. Luis Cortez M.D. aty/:11/14/2019 18:11:33 BI-RADS CATEGORY: () - Mammo and [place] [id number] 6 month follow-up LATERALITY: (L)
== END 2019-11-12 14:07 | disposition home or self-care (01) ==
LOC: DI 14:06
PROVIDERS: ATTEND Registered Nurse
DX: R92.8 Other abnormal and inconclusive findings on diagnostic imaging of breast (principal)
CPT/HCPCS: 19081

== ENCOUNTER 2019-12-02 20:24 | Outpatient (CLI) | payer MEDICAID | END 2019-12-02 20:25 | disposition other institution (70) | LOC: EMS 20:24 | PROVIDERS: ATTEND Surgery | DX: S01.452A Open bite of left cheek and temporomandibular area, initial encounter (principal); S01.25XA Open bite of nose, initial encounter; S01.551A Open bite of lip, initial encounter; S01.85XA Open bite of other part of head, initial encounter; W54.0XXA Bitten by dog, initial encounter; Y93.01 Activity, walking, marching and hiking; Y92.009 Unspecified place in unspecified non-institutional (private) residence as the place of occurrence of the external cause | CPT/HCPCS: A0425; A0427; A0999 ==

== ENCOUNTER 2020-02-25 02:47 | Outpatient (CLI) | payer MEDICAID | END 2020-02-25 02:48 | disposition critical access hospital (66) | LOC: EMS 02:47 | PROVIDERS: ATTEND Surgery | DX: R55 Syncope and collapse (principal) | CPT/HCPCS: A0425; A0427; A0999 ==

== ENCOUNTER 2020-02-25 03:04 | Observation (INO) | payer MEDICAID ==
[2020-02-25] MEDS ORDERED: KETOROLAC 15 MG/ML VIAL IVP STA (03:40)
[2020-02-25] MEDS ORDERED: LACTATED RINGERS 1,000 ML IV STA ×2 (03:40→05:01)
--- NOTE | 2020-02-25 03:44 | ED Physician Documentation ---
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 Patient was assisted to the floor without any head trauma and had brief LOC without urinary or fecal incontinence, tongue biting or twitching activity. She states that she has been feeling lightheaded throughout the day yesterday as well as mildly dyspneic with exertion. She has been taking Dilaudid for pain and had her last dose of 2 mg oral in the early hours of this morning. She also had a shot of vodka at 1 AM. And marijuana around 5 PM last night. Denies fevers, myalgias, chest pain, abdominal pain diarrhea urinary symptoms back pain. She was found to be orthostatic on scene with EMS with supine blood pressure systolic 90 Going down to 80 standing up.300 cc IV fluids given by EMS with improvement in symptoms.She did vomit after fainting. Nonbloody nonbilious Review of Systems Ten Systems: 10 systems reviewed and negative GI: reports: Nausea, Vomiting PD PAST MEDICAL HISTORY - Past Medical History Cardiovascular: Hypertension, High cholesterol Respiratory: None Endocrine/Autoimmune: None GI: Other SAND CONDITIONER: None : None HEENT: None Psych: Depression, Anxiety, Panic attacks Musculoskeletal: Osteoarthritis, Chronic back pain, Fibromyalgia, Other Derm: None - Past Surgical History Past Surgical History: Yes General: EGD /SAND CONDITIONER: Dilation and currettage, Hysterectomy HEENT: Other - Present Medications Home Medications: Ambulatory Orders Medication Instructions Recorded Confirmed Acetaminophen [Tylenol] 650 mg PO Q6H PRN 02/25/20 02/25/20 Atorvastatin [Lipitor] 10 mg PO DAILY 02/25/20 02/25/20 HYDROmorphone [Dilaudid] 2 mg PO PRN PRN 02/25/20 02/25/20 Ibuprofen [Motrin] 600 mg PO Q6H PRN 02/25/20 02/25/20 Quetiapine Fumarate [Seroquel] 100 mg PO DAILY 02/25/20 02/25/20 Sertraline HCl [Zoloft] 100 mg PO DAILY 02/25/20 02/25/20 traZODone [Desyrel] 50 mg PO DAILY 02/25/20 02/25/20 - Allergies Allergies/Adverse Reactions: Allergies Allergy/AdvReac Type Severity Reaction Status Date / Time gabapentin Allergy Severe Loss of Verified 02/25/20 03:19 Muscle Control tramadol Allergy Severe Dizziness/L Verified 02/25/20 03:19 ightheaded venlafaxine HCl * Allergy Severe Hallucinati Verified 02/25/20 03:19 [From Effexor] ons - Social History Does the pt smoke?: No Smoking Status: Never smoker Does the pt drink ETOH?: Yes Does the pt have substance abuse?: No - Immunizations Immunizations are current?: Yes PD ED PE NORMAL - Vitals Vital signs reviewed: Yes - General General: Alert and oriented X 3 - HEENT HEENT: Atraumatic, PERRL, EOMI - Neck Neck: No bony TTP - Cardiac Cardiac: RRR - Respiratory Respiratory: No respiratory distress, Clear bilaterally - Abdomen Abdomen: Non tender, Non distended - Female Female : Deferred - Rectal Rectal: Deferred - Back Back: No spinal TTP - Derm Derm: Normal color, Warm and dry, Other (facial deformity with surgical wound sites healing well) - Extremities Extremities: No deformity, Normal ROM s pain - Neuro Neuro: Alert and oriented X 3, energy audit advisor 2-12 intact, No motor deficit, No sensory deficit, Normal speech - Psych Psych: Normal mood, Normal affect, Other (Mild slurring of words.appears mildly intoxicated) Results - Vitals Vitals: Vital Signs - 24 hr 02/25/20 02/25/20 02/25/20 03:26 04:00 04:30 Temperature 36.6 C Heart Rate 74 84 83 Respiratory 16 16 16 Rate Blood Pressure 92/56 L 80/43 L 88/50 L O2 Saturation 98 100 100 Oxygen O2 Source Room air - Labs Labs: Laboratory Tests 02/25/20 02/25/20 02/25/20 03:40 03:40 03:40 WBC 12.2 H RBC 2.11 L Hgb 7.0 L* Hct 21.2 L MCV 100.5 H MCH 33.2 H MCHC 33.0 RDW 14.8 Plt Count 286 MPV 9.5 Neut # (Auto) 9.6 H Lymph # (Auto) 1.7 [place] # (Auto) 0.7 Eos # (Auto) 0.2 Baso # (Auto) 0.1 Absolute Nucleated RBC 0.00 Nucleated RBC % 0.0 Sodium 139 Potassium 4.0 Chloride 106 Carbon Dioxide 24 Anion Gap 9.0 BUN 25 H Creatinine 0.6 Estimated GFR (MDRD) 111 Glucose 109 H Calcium 8.3 L Total Bilirubin 0.2 AST 19 ALT 13 Alkaline Phosphatase 32 L Troponin I High Sens 2.4 Total Protein 6.1 L Albumin 3.6 Globulin 2.5 Albumin/Globulin Ratio 1.4 Lipase 20 L Serum HCG, Qual Ethyl Alcohol < 5.0 02/25/20 03:40 WBC RBC Hgb Hct MCV MCH MCHC RDW Plt Count MPV Neut # (Auto) Lymph # (Auto) [place] # (Auto) Eos # (Auto) Baso # (Auto) Absolute Nucleated RBC Nucleated RBC % Sodium Potassium Chloride Carbon Dioxide Anion Gap BUN Creatinine Estimated GFR (MDRD) Glucose Calcium Total Bilirubin AST ALT Alkaline Phosphatase Troponin I High Sens Total Protein Albumin Globulin Albumin/Globulin Ratio Lipase Serum HCG, Qual NEGATIVE Ethyl Alcohol PD MEDICAL DECISION MAKING - ED course ED course: 39-year-old woman presents status post syncopal episodes with polysubstance on board. Orthostatic vital signs in the field, improved with IV fluids. Patient is still mildly hypotensive and we will give additional fluids and monitor. Anemic on labwork. patient denying rectal bleeding. does not get periods. she was told she lost blood during her last surgery but did not receive a blood transfusion at that time. Declining rectal exam. d/w hospitalist who will admit for blood transfusion/monitoring given symptomatic anemia and hypotension despite 1500 cc ivf. will administer 3rd liter. type and screen sent. patient aware she will need to stay and is amenable. Of note, she does have a post op clinic appointment at [facility] with her ENT Dr. Dick on monday. Departure - Departure Disposition: 66 [facility] DC/Xfer Clinical Impression: Anemia, Syncope, Weakness, Hypotension Condition: Stable
[2020-02-25 03:47] LABS: BASOPHILS # (AUTO) 0.1 10^3/uL (0.0-0.1); BASOPHILS % (AUTO) 0.4 %; EOSINOPHILS # (AUTO) 0.2 10^3/uL (0.0-0.7); EOSINOPHILS % (AUTO) 1.4 %; LYMPHOCYTES # (AUTO) 1.7 10^3/uL (1.5-3.5); LYMPHOCYTES % (AUTO) 13.6 %; MEAN CORPUSCULAR HEMOGLOBIN 33.2 pg (27.0-31.0); MEAN CORPUSCULAR VOLUME 100.5 fL (81.0-99.0); MEAN PLATELET VOLUME 9.5 fL (7.9-10.8); MONOCYTES # (AUTO) 0.7 10^3/uL (0.0-1.0); MONOCYTES % (AUTO) 5.8 %; NEUTROPHILS # (AUTO) 9.6 10^3/uL (1.5-6.6); NEUTROPHILS % (AUTO) 78.5 %; PLT - PLATELET COUNT 286 10^3/uL (130-450); RED BLOOD COUNT 2.11 10^6/uL (4.20-5.40); RED CELL DISTRIBUTION WIDTH 14.8 % (12.0-15.0); WHITE BLOOD COUNT 12.2 x10^3/uL (4.8-10.8)
[2020-02-25 04:01] LABS: ALBUMIN 3.6 g/dL (3.2-5.5); ALBUMIN/GLOBULIN RATIO 1.4 (1.0-2.2); ALKALINE PHOSPHATASE 32 IU/L (42-121); ALT ALANINE AMINOTRANSFERASE 13 IU/L (10-60); AST ASPARTATE AMINOTRANSFERASE 19 IU/L (10-42); BILIRUBIN,TOTAL 0.2 mg/dL (0.2-1.0); BUN - BLOOD UREA NITROGEN 25 mg/dL (6-20); CALCIUM 8.3 mg/dL (8.5-10.3); CARBON DIOXIDE - CO2 24 mmol/L (21-32); CHLORIDE 106 mmol/L (101-111); CREATININE 0.6 mg/dL (0.4-1.0); GLUCOSE 109 mg/dL (70-100); LIPASE 20 U/L (22-51); SODIUM 139 mmol/L (135-145); TOTAL PROTEIN 6.1 g/dL (6.7-8.2)
[2020-02-25 04:38] LABS: HCG,QUALITATIVE BLOOD NEGATIVE
[2020-02-25] MEDS ORDERED: ONDANSETRON 4 MG/2 ML VIAL IVP PRN (05:10)
[2020-02-25] MEDS ORDERED: SODIUM CHLORIDE FLUSH 0.9% 10 ML SYRINGE IVP PRN (05:10)
--- NOTE | 2020-02-25 05:15 | HISTORY & PHYSICAL EXAMINATION ---
History of Present Illness - Admitted From Admitted From:: [facility] ED - History Obtained From Records Reviewed: yes History obtained from: patient - History of Present Illness HPI Comment/Other: Patient is a 39-year-old female who presented to the ED after syncopal episode around 2 AM this morning. She reports that she had gone downstairs to get something to eat when she fell because of dizziness. She reports going in and out of consciousness. She has a history of significant facial dog bite. It was not on provoked attack by a Rottweiler. As a result she has undergone 5 plastic surgeries to date. T he last surgery was 5 days ago. She is scheduled for another surgery in 4 to 5 weeks. It is mentioned that she had a significant amount of blood loss. It is reported that normally her hemoglobin is 14. On lab check today it was 7. She was also found to be hypotensive with a systolic blood pressure in the 80s. Over the past 2 days she has been experiencing significant dyspnea on exertion. On a separate note it was reported that she has been smoking marijuana and drinking alcohol previous day as well. However blood alcohol is less than 5. At bedside she appears weak but readily carries on a conversation. She denies chest pain, abdominal pain, fever or chills. She reports nausea and vomiting. She vomited around the time of her syncopal episode. She also complains of dyspnea on exertion. She also reports one episode of dark stool a couple of days ago. He is presented for admission for further treatment which would include blood transfusion. History - Past Medical History Cardiovascular: reports: Hypertension, High cholesterol Respiratory: reports: None Endocrine/Autoimmune: reports: None GI: reports: Other GRAB HOOKER: reports: None : reports: None HEENT: reports: None Psych: reports: Depression, Anxiety, Panic attacks Musculoskeletal: reports: Osteoarthritis, Chronic back pain, Fibromyalgia, Other Derm: reports: None MRSA Hx?: No - Past Surgical History General: reports: EGD /GRAB HOOKER: reports: Dilation and currettage, Hysterectomy HEENT: reports: Other (Multiple facial surgeries especially to her nose and right ear due to a dog bite.) Derm: reports: Skin grafts (To face following dog bite) - Family & Social History Family History Comment/Other: She reports a family history significant for Medina-Danlos Social History Notes: Patient has smoked about 1 pack/day for 25 years. She d oes drink alcohol and uses marijuana. - POLST Patient has POLST: No POLST Status: Full Code Meds/Allgy - Home Medications Home Medications: Ambulatory Orders Medication Instructions Recorded Confirmed Acetaminophen [Tylenol] 650 mg PO Q6H PRN 02/25/20 02/25/20 Atorvastatin [Lipitor] 10 mg PO DAILY 02/25/20 02/25/20 HYDROmorphone [Dilaudid] 2 mg PO PRN PRN 02/25/20 02/25/20 Ibuprofen [Motrin] 600 mg PO Q6H PRN 02/25/20 02/25/20 Quetiapine Fumarate [Seroquel] 100 mg PO DAILY 02/25/20 02/25/20 Sertraline HCl [Zoloft] 100 mg PO DAILY 02/25/20 02/25/20 traZODone [Desyrel] 50 mg PO DAILY 02/25/20 02/25/20 - Allergies Allergies/Adverse Reactions: Allergies Allergy/AdvReac Type Severity Reaction Status Date / Time gabapentin Allergy Severe Loss of Verified 02/25/20 03:19 Muscle Control tramadol Allergy Severe Dizziness/L Verified 02/25/20 03:19 ightheaded venlafaxine HCl * Allergy Severe Hallucinati Verified 02/25/20 03:19 [From Effexor] ons Review of Systems - Constitutional Constitutional: reports: Fatigue, Weakness. denies: Fever, Chills - Eyes Eyes: denies: Dipolpia - Ears, Nose & Throat Ears, Nose & Throat: denies: Ear pain, Sore throat, Hoarseness - Cardiovascular Cariovascular: reports: Syncope. denies: Palpitations, Chest pain, Edema - Respiratory Respiratory: reports: SOB with exertion. denies: Cough, Sputum production, Wheezing - Gastrointestinal Gastrointestinal: reports: Black stools, Nausea, Vomiting. denies: Abdominal pain, Abdominal distention, Constipation, Coffee grounds emesis, Reflux/heartburn - Genitourinary Genitourinary: denies: Dysuria, Frequency, Urgency, Hematuria - Musculoskeletal Musculoskeletal: denies: Muscle pain, Back pain, Muscle aches, Stiffness - Integumentary Integumentary: denies: Rash, Pruritis, Lesions - Neurological Neurological: reports: General weakness. denies: Focal weakness, Headache - Psychiatric Psychiatric: reports: Depression, Anxiety - Endocrine Endocrine: denies: Polyuria, Polydypsia - Hematologic/Lymphatic Hematologic/Lymphatic: reports: Anemia. denies: Bruising, Petechiae Prior Level of Functionality: She is independent of activities of daily living. Exam - Vital Signs Vital Signs: Vital Signs x48h Temp Pulse Resp BP Pulse Ox 02/25/20 04:30 83 16 88/50 L 100 02/25/20 04:00 84 16 80/43 L 100 02/25/20 03:26 36.6 C 74 16 92/56 L 98 - Physical Exam General Appearance: positive: No acute distress, Alert Eyes Bilateral: positive: PERRL, EOMI ENT: positive: Dry mucous membranes, Other (Sutures on the medial side of right ear from dog bite. Extensive surgeries/suture to face with skin grafts due to dog bite) Neck: positive: No JVD, Trachea midline Respiratory: positive: Chest non-tender, No respiratory distress, Breath sounds nml. negative: Wheezes, Rales, Rhonchi Cardiovascular: positive: Regular rate & rhythm, No murmur Abdomen: positive: Non-tender, No organomegaly, Nml bowel sounds, No distention. negative: Guarding, Rebound Back: positive: Nml inspection Skin: positive: Color nml, Warm, Dry Neurologic/Psychiatric: positive: Oriented x3, Mood/affect nml Conclusion/Plan - Problem List (1) Anemia Conclusion/Plan: Likely secondary to acute blood loss related to surgery. Patient's hemoglobin on October 03, 2019 was 15. Today her hemoglobin is 7. Patient has undergone extensive facial surgeries with skin graft following an unprovoked dog bite. Patient receiving IV hydration with normal saline at 150 mils per hour. We will transfuse patient 2 units of packed red blood cells and recheck hemoglobin. (2) Syncope Conclusion/Plan: Likely secondary to hypotension from blood loss anemia. Patient receiving IV hydration with normal saline at 150 mils per hour. Patient was given a 1 L bolus of normal saline in the ED. Patient systolic blood pressure has improved from the 80s to the high 90s. Anticipating further improvement with transfusion of 2 units of packed red blood cells. We will continue to monitor. (3) Dog bite Conclusion/Plan: It was an unprovoked attack. Patient has undergone 5 surgeries so far to her face with skin grafts. She has also undergone suturing to the right EAC. Her next surgery is planned for 4 to 5 weeks from now. She will follow-up with the plastic surgeons at [facility]. (4) Hyperlipidemia Conclusion/Plan: We will continue patient's atorvastatin once verified. (5) Depression Conclusion/Plan: Patient is on sertraline and Seroquel. We will continue once verified. (6) Anxiety Conclusion/Plan: On sertraline (7) Insomnia Conclusion/Plan: Will resume trazodone once verified - Lab Results Fish Bones: 02/25/20 03:40 02/25/20 03:40 Core Measures - Anticipated LOS I expect patient to be DC'd or transferred within 96 hours.: Yes - DVT/VTE - Prophylaxis VTE/DVT Device ordered at admit?: Yes VTE/DVT Prophylaxis med ordered at admit?: Yes
[2020-02-25] MEDS ORDERED: SODIUM CHLORIDE 0.9% 1,000 ML IV SCH (06:00)
[2020-02-25] MEDS: PANTOPRAZOLE 40 MG TABLET PO SCH (07:02)
--- NOTE | 2020-02-25 08:24 | XRAY Report ---
PROCEDURE: Chest 1 View X-Ray INDICATIONS: sob, dizziness tday TECHNIQUE: One view of the chest was acquired. COMPARISON: 01/12/2019 FINDINGS: Surgical changes and devices: None. Lungs and pleura: No pleural effusions or pneumothorax. Lungs are clear. Mediastinum: Mediastinal contours appear normal. Heart size is normal. Bones and chest wall: No suspicious bony lesions. Overlying soft tissues appear unremarkable. IMPRESSION: No acute cardiopulmonary disease process. Reviewed by: Marcia Lopes MD, PhD on 02/25/2020 8:22 AM [facility] Approved by: Marcia Lopes MD, PhD on 02/25/2020 8:22 AM [facility] Station ID: [id number]
[2020-02-25] MEDS: SODIUM CHLORIDE FLUSH 0.9% 10 ML SYRINGE IVP SCH ×2 (10:06→10:42)
[2020-02-25] MEDS: HYDROmorphone 2 MG TABLET PO PRN ×3 (10:06→22:08)
[2020-02-25] MEDS: SERTRALINE 50 MG TABLET PO SCH (10:06)
[2020-02-25] MEDS ORDERED: CALCIUM CARBONATE CHEW 500 MG TABLET PO PRN (11:12)
[2020-02-25] MEDS: ACETAMINOPHEN 325 MG TABLET PO PRN ×2 (11:15→17:22)
--- NOTE | 2020-02-25 12:10 | PHARMACY PROGRESS NOTE ---
- Best Possible Medication History Admit Date and Time: 02/25/20 0510 Processed by: Pharmacy Medication History completed: Yes Patient Interview: Completed Secondary Source(s): Physician records, Pharmacy records, Insurance records (PATIENT INTERVIEWED BY PHARMACY. PATIENT ABLE TO CONFIRM HOME MEDICATIONS ) As the person ultimately responsible for medication therapy, providers are able to order a medication from an existing home medication list in [facility] via the "Reconcile Routine" prior to Confirmation of that medication by field support technician. Such practice is discouraged except when the physician, in their clinical judgment, deems that a medical need exists for a medication without regard to previous use.
[2020-02-25 14:05] LABS: BASOPHILS % (AUTO) 0.4 %; EOSINOPHILS # (AUTO) 0.2 10^3/uL (0.0-0.7); EOSINOPHILS % (AUTO) 1.8 %; HGB - HEMOGLOBIN 8.8 g/dL (12.0-16.0); LYMPHOCYTES # (AUTO) 2.4 10^3/uL (1.5-3.5); LYMPHOCYTES % (AUTO) 22.1 %; MEAN CORPUSCULAR HEMOGLOBIN 32.1 pg (27.0-31.0); MEAN CORPUSCULAR HGB CONC 33.3 g/dL (32.0-36.0); MEAN CORPUSCULAR VOLUME 96.4 fL (81.0-99.0); MEAN PLATELET VOLUME 9.5 fL (7.9-10.8); MONOCYTES # (AUTO) 0.7 10^3/uL (0.0-1.0); MONOCYTES % (AUTO) 6.3 %; NEUTROPHILS # (AUTO) 7.5 10^3/uL (1.5-6.6); NEUTROPHILS % (AUTO) 68.9 %; PLT - PLATELET COUNT 237 10^3/uL (130-450); RED BLOOD COUNT 2.74 10^6/uL (4.20-5.40); RED CELL DISTRIBUTION WIDTH 16.5 % (12.0-15.0); WHITE BLOOD COUNT 10.9 x10^3/uL (4.8-10.8)
[2020-02-25] MEDS ORDERED: SODIUM CHLORIDE 0.65% NASAL SPRAY NAS PRN (16:37)
[2020-02-25] MEDS: AMOX/CLAV 875 MG/125 MG TABLET PO SCH (17:21)
[2020-02-25] MEDS: MINERAL OIL/HYDROPHIL PETROLAT 454 GM JAR TOP SCH ×2 (17:24→22:09)
--- NOTE | 2020-02-25 17:42 | PROVIDER PROGRESS NOTE ---
Hospitalist Cross-cover Note - Cross-Cover Note Cross-Cover Note: The patient received 2 units of packed red blood cells today and her hemoglobin increased to 8.8. She reports feeling much improved from a symptomatic standpoint. She is able to ambulate without any dyspnea or lightheadedness. There is been no obvious evidence of bleeding during this hospitalization. We have resumed her home Augmentin which she is on for prophylaxis given her recent surgical intervention. We will recheck hemoglobin this evening and once again tomorrow morning. If this is stable then she is likely to be discharged tomorrow morning. It appears her anemia may be postoperative given the lack of obvious bleeding at this time. We did order fecal occult stool sample to ensure there is no GI bleed. We will discontinue her IV fluids given her blood pressure is stable and she is tolerating p.o.
[2020-02-25] MEDS: IBUPROFEN 400 MG TABLET PO PRN (18:39)
[2020-02-25 19:01] LABS: MUDS CUTOFF CONCENTRATIONS CUTOFF CONC BELOW:
[2020-02-25 19:17] LABS: COCAINE SCREEN URINE NEGATIVE (NEGATIVE)
[2020-02-25 19:18] LABS: AMPHETAMINE SCREEN,URINE POSITIVE (NEGATIVE); BENZODIAZEPINES SCREEN, URINE NEGATIVE (NEGATIVE); METHADONE SCREEN, URINE NEGATIVE (NEGATIVE); METHAMPHETAMINES SCREEN, URINE POSITIVE (NEGATIVE); OPIATE SCREEN, URINE POSITIVE (NEGATIVE); TRICYCLIC ANTIDEPRESSANT,URINE POSITIVE (NEGATIVE)
[2020-02-25 19:19] LABS: OXYCODONE SCREEN, URINE NEGATIVE (NEGATIVE); PROPOXYPHENE SCREEN, URINE NEGATIVE (NEGATIVE)
[2020-02-25] MEDS ORDERED: QUEtiapine 100 MG TABLET PO SCH (21:00)
[2020-02-25] MEDS ORDERED: ATORVASTATIN 10 MG TABLET PO SCH (21:00)
[2020-02-25] MEDS ORDERED: traZODone 50 MG TABLET PO SCH (21:00)
[2020-02-25 21:07] LABS: BASOPHILS % (AUTO) 0.4 %; EOSINOPHILS # (AUTO) 0.3 10^3/uL (0.0-0.7); EOSINOPHILS % (AUTO) 2.9 %; HGB - HEMOGLOBIN 8.8 g/dL (12.0-16.0); LYMPHOCYTES # (AUTO) 3.3 10^3/uL (1.5-3.5); LYMPHOCYTES % (AUTO) 36.9 %; MEAN CORPUSCULAR HEMOGLOBIN 32.4 pg (27.0-31.0); MEAN CORPUSCULAR HGB CONC 32.7 g/dL (32.0-36.0); MEAN CORPUSCULAR VOLUME 98.9 fL (81.0-99.0); MEAN PLATELET VOLUME 9.6 fL (7.9-10.8); MONOCYTES # (AUTO) 0.7 10^3/uL (0.0-1.0); MONOCYTES % (AUTO) 7.7 %; NEUTROPHILS # (AUTO) 4.7 10^3/uL (1.5-6.6); NEUTROPHILS % (AUTO) 51.8 %; PLT - PLATELET COUNT 237 10^3/uL (130-450); RED BLOOD COUNT 2.72 10^6/uL (4.20-5.40); RED CELL DISTRIBUTION WIDTH 17.2 % (12.0-15.0); WHITE BLOOD COUNT 9.1 x10^3/uL (4.8-10.8)
[2020-02-26] MEDS: SODIUM CHLORIDE FLUSH 0.9% 10 ML SYRINGE IVP SCH ×2 (00:35→08:55)
[2020-02-26] MEDS: HYDROmorphone 2 MG TABLET PO PRN (04:05)
[2020-02-26] MEDS: IBUPROFEN 400 MG TABLET PO PRN (04:23)
[2020-02-26 04:43] LABS: BASOPHILS % (AUTO) 0.3 %; EOSINOPHILS # (AUTO) 0.3 10^3/uL (0.0-0.7); EOSINOPHILS % (AUTO) 3.3 %; HGB - HEMOGLOBIN 9.3 g/dL (12.0-16.0); LYMPHOCYTES # (AUTO) 2.9 10^3/uL (1.5-3.5); LYMPHOCYTES % (AUTO) 31.6 %; MEAN CORPUSCULAR HEMOGLOBIN 31.8 pg (27.0-31.0); MEAN CORPUSCULAR HGB CONC 32.6 g/dL (32.0-36.0); MEAN CORPUSCULAR VOLUME 97.6 fL (81.0-99.0); MEAN PLATELET VOLUME 9.5 fL (7.9-10.8); MONOCYTES # (AUTO) 0.6 10^3/uL (0.0-1.0); NEUTROPHILS # (AUTO) 5.4 10^3/uL (1.5-6.6); NEUTROPHILS % (AUTO) 58.6 %; PLT - PLATELET COUNT 246 10^3/uL (130-450); RED BLOOD COUNT 2.92 10^6/uL (4.20-5.40); RED CELL DISTRIBUTION WIDTH 17.1 % (12.0-15.0); WHITE BLOOD COUNT 9.3 x10^3/uL (4.8-10.8)
[2020-02-26 04:49] LABS: PT - PROTHROMBIN TIME 11.4 secs (9.9-12.6)
[2020-02-26 04:54] LABS: CALCIUM 8.2 mg/dL (8.5-10.3); CREATININE 0.5 mg/dL (0.4-1.0)
[2020-02-26] MEDS: PANTOPRAZOLE 40 MG TABLET PO SCH (06:49)
--- NOTE | 2020-02-26 07:14 | Discharge Plan ---
Discharge Plan Problem Reviewed?: Yes Disposition: Home, Self Care Condition: Stable Diet: Regular Activity Restrictions: Activity as Tolerated Health Concerns: You were seen in the hospital because you passed out at home and this was likely due to you being dehydrated as well as having low blood counts. Your blood pressure was also low initially. You are given 2 units of blood with improvement in your blood counts and they have since remained stable and there has been no further evidence of bleeding. Your symptoms have also resolved. It is likely this anemia may be related to your recent surgeries. Plan of Treatment: Please continue to follow-up with your surgeon as scheduled. Please continue to take the antibiotics you were previously prescribed by your surgeon given the recent surgery you had. There were no changes made to your medication. Care Goals: Please return to the emergency department if you develop any episodes of syncope, dizziness, lightheadedness, fatigue, shortness of breath. Assessment: Patient expressed understanding of the treatment plan. Additional Instructions or Follow Up instructions: Please follow-up with your surgeon as scheduled and it is recommended you follow-up with your primary care provider in 1 to 2 weeks to ensure your blood counts are stable and you are feeling well. No Smoking: If you smoke, Please STOP! Call for help. Follow-up with: Jennifer Vasquez ARNP [Credentialed Staff Provider] -
--- NOTE | 2020-02-26 07:25 | DISCHARGE SUMMARY ---
Discharge Summary Admit Date: 02/25/20 Discharge Date: 02/26/20 Discharging Provider: Danis Armando Primary Care Provider: Jennifer Vasquez Code Status: Attempt Resuscitation Condition at Discharge: Stable Discharge Disposition: 01 Home, Self Care - DIAGNOSES Admission Diagnoses: Anemia Syncope Dog bite Hyperlipidemia Depression Anxiety Insomnia Discharge Diagnoses with Status of Each Condition: Anemia - improved. Syncope - resolved. History of dog bite - stable. Hyperlipidemia - stable. Depression - stable. Anxiety - stable. Insomnia - stable. - HPI History of Present Illness: H&P per Dr. Cisneros: Patient is a 39-year-old female who presented to the ED after syncopal episode around 2 AM this morning. She reports that she had gone downstairs to get something to eat when she fell because of dizziness. She reports going in and out of consciousness. She has a history of significant facial dog bite. It was not on provoked attack by a Rottweiler. As a result she has undergone 5 plastic surgeries to date. The last surgery was 5 days ago. She is scheduled for another surgery in 4 to 5 weeks. It is mentioned that she had a significant amount of blood loss. It is reported that normally her hemoglobin is 14. On lab check today it was 7. She was also found to be hypotensive with a systolic blood pressure in the 80s. Over the past 2 days she has been experiencing significant dyspnea on exertion. On a separate note it was reported that she has been smoking marijuana and drinking alcohol previous day as well. However blood alcohol is less than 5. At bedside she appears weak but readily carries on a conversation. She denies chest pain, abdominal pain, fever or chills. She reports nausea and vomiting. She vomited around the time of her syncopal episode. She also complains of dyspnea on exertion. She also reports one episode of dark stool a couple of days ago. He is presented for admission for further treatment which would include blood transfusion. - HOSPITAL COURSE Hospital Course: Presented with syncope which was felt to likely be due to hypotension and her anemia. The anemia was felt to be postoperative given her multiple surgical interventions including just a few days prior to admission. Unfortunate, iron studies were not initially checked prior to transfusion. She did receive 2 units of packed red blood cell with improvement in her hemoglobin from 7 to 8.8. Her hemoglobin has since remained stable and has increased to 9.3 the day of discharge. There has been no evidence of bleeding during this hospitalization. Her hypotension has also resolved after receiving IV fluids and the blood transfusions. Her orthostatics were checked and these were negative. An echocardiogram was not obtained as there was no obvious murmur on exam and telemetry was unremarkable and was felt that this was likely to be of little value as she likely had a syncopal episode due to the hypotension and anemia. After transfusion, the patient felt like all her symptoms have resolved. She was discharged home in a stable condition and she will be following up with her surgeon later on this afternoon for postop follow-up. Of note, a urine drug screen was obtained during his hospitalization which was positive for cannabino ids, amphetamines, methamphetamines. It was also positive for tricyclics and opiates although she is on hydromorphone for postop pain control. I did ask her regarding these findings and she denied any recent use of methamphetamines or any drug use. She states she still does smoke and has a remote history of illicit drug use when she was younger but she absolutely denies any recent use. I did careers counsellor her on the importance of smoking cessation as well as the importance of abstaining from all illicit drug use. We discussed that this is crucial for wound healing given her multiple surgical interventions. - ALLERGIES Allergies/Adverse Reactions: Allergies Allergy/AdvReac Type Severity Reaction Status Date / Time gabapentin Allergy Severe Loss of Verified 02/25/20 03:19 Muscle Control tramadol Allergy Severe Dizziness/L Verified 02/25/20 03:19 ightheaded venlafaxine HCl * Allergy Severe Hallucinati Verified 02/25/20 03:19 [From Effexor] ons - MEDICATIONS Home Medications: Ambulatory Orders Medication Instructions Recorded Confirmed RX: Acetaminophen [Tylenol] 650 mg PO Q6H PRN 02/25/20 02/25/20 RX: Amox/Clav 875/125 [Augmentin 1 tab PO BID 02/25/20 02/25/20 875/125] RX: Atorvastatin [Lipitor] 20 mg PO DAILY 02/25/20 02/25/20 RX: HYDROmorphone [Dilaudid] 2 mg PO Q4H PRN 02/25/20 02/25/20 RX: Ibuprofen [Motrin] 600 mg PO Q6H PRN 02/25/20 02/25/20 RX: Quetiapine Fumarate [Seroquel] 100 mg PO QPM 02/25/20 02/25/20 RX: Sertraline HCl [Zoloft] 150 mg PO DAILY 02/25/20 02/25/20 RX: traZODone [Desyrel] 50 mg PO DAILY 02/25/20 02/25/20 - PHYSICAL EXAM AT DISCHARGE General Appearance: positive: No acute distress, Alert Eyes Bilateral: positive: Conjunctivae nml ENT: positive: Other (She has evidence of prior surgical incisions and skin grafts due to injury. Postsurgical facial deformity noted. No evidence of significant erythema or purulent drainage.) Neck: positive: Nml inspection Respiratory: positive: No respiratory distress. negative: Wheezes, Rales Cardiovascular: positive: Regular rate & rhythm, No murmur. negative: Tachycardia, Systolic murmur Abdomen: positive: Non-tender, No distention. negative: Tenderness, Guarding, Rebound Skin: positive: Warm, Dry Extremities: positive: Full ROM, No pedal edema Neurologic/Psychiatric: positive: Oriented x3, Motor nml. negative: Disoriented to person, Disoriented to place, Disoriented to time Physical Exam Other/Comments: Vital Signs - 24 hr 02/25/20 02/25/20 02/25/20 10:44 10:50 11:00 Temperature 37.1 C 37.1 C 36.9 C Heart Rate 85 85 81 Heart Rate [ Brachial] Respiratory 16 16 16 Rate Blood Pressure 97/53 L 97/53 L 93/53 L Blood Pressure [Right Brachial artery] O2 Saturation 02/25/20 02/25/20 02/25/20 11:10 11:54 12:55 Temperature 36.8 C 36.8 C 37 C Heart Rate 80 71 Heart Rate [ 76 Brachial] Respiratory 16 20 18 Rate Blood Pressure 104/56 L 103/56 L Blood Pressure 104/56 L [Right Brachial artery] O2 Saturation 98 02/25/20 02/25/20 02/26/20 15:34 19:34 00:00 Temperature 37.1 C 36.8 C 36.9 C Heart Rate Heart Rate [ 78 82 65 Brachial] Respiratory 20 19 16 Rate Blood Pressure Blood Pressure 105/51 L 100/57 L 95/62 [Right Brachial artery] O2 Saturation 98 98 94 02/26/20 02/26/20 02/26/20 01:00 03:57 08:37 Temperature 37.5 C 37.8 C 36.8 C Heart Rate Heart Rate [ 70 84 84 Brachial] Respiratory 16 20 16 Rate Blood Pressure Blood Pressure 98/52 L 104/56 L 121/72 [Right Brachial artery] O2 Saturation 94 96 98 Oxygen O2 Source Room air - LABS Result Diagrams: 02/26/20 04:34 02/26/20 04:34 Other Lab Results: Laboratory Tests 02/25/20 02/25/20 02/25/20 03:40 03:40 03:40 WBC 12.2 H RBC 2.11 L Hgb 7.0 L* Hct 21.2 L MCV 100.5 H MCH 33.2 H MCHC 33.0 RDW 14.8 Plt Count 286 MPV 9.5 Neut # (Auto) 9.6 H Lymph # (Auto) 1.7 [place] # (Auto) 0.7 Eos # (Auto) 0.2 Baso # (Auto) 0.1 Absolute Nucleated RBC 0.00 Nucleated RBC % 0.0 PT INR Sodium 139 Potassium 4.0 Chloride 106 Carbon Dioxide 24 Anion Gap 9.0 BUN 25 H Creatinine 0.6 Estimated GFR (MDRD) 111 Glucose 109 H Calcium 8.3 L Total Bilirubin 0.2 AST 19 ALT 13 Alkaline Phosphatase 32 L Troponin I High Sens 2.4 Total Protein 6.1 L Albumin 3.6 Globulin 2.5 Albumin/Globulin Ratio 1.4 Lipase 20 L Serum HCG, Qual Urine Opiates Screen Ur Oxycodone Screen Urine Methadone Screen Ur Propoxyphene Screen Ur Barbiturates Screen Ur Tricyclics Screen Ur Phencyclidine Scrn Ur Amphetamine Screen U Methamphetamines Scrn U Benzodiazepines Scrn Urine Cocaine Screen U Cannabinoids Screen Ethyl Alcohol < 5.0 Blood Type Antibody Screen Crossmatch IS Only 02/25/20 02/25/20 02/25/20 03:40 04:20 13:54 WBC 10.9 H RBC 2.74 L Hgb 8.8 L Hct 26.4 L MCV 96.4 MCH 32.1 H MCHC 33.3 RDW 16.5 H Plt Count 237 MPV 9.5 Neut # (Auto) 7.5 H Lymph # (Auto) 2.4 [place] # (Auto) 0.7 Eos # (Auto) 0.2 Baso # (Auto) 0.0 Absolute Nucleated RBC 0.00 Nucleated RBC % 0.0 PT INR Sodium Potassium Chloride Carbon Dioxide Anion Gap BUN Creatinine Estimated GFR (MDRD) Glucose Calcium Total Bilirubin AST ALT Alkaline Phosphatase Troponin I High Sens Total Protein Albumin Globulin Albumin/Globulin Ratio Lipase Serum HCG, Qual NEGATIVE Urine Opiates Screen Ur Oxycodone Screen Urine Methadone Screen Ur Propoxyphene Screen Ur Barbiturates Screen Ur Tricyclics Screen Ur Phencyclidine Scrn Ur Amphetamine Screen U Methamphetamines Scrn U Benzodiazepines Scrn Urine Cocaine Screen U Cannabinoids Screen Ethyl Alcohol Blood Type A POSITIVE Antibody Screen NEGATIVE Crossmatch IS Only See Detail 02/25/20 02/25/20 02/26/20 18:00 21:01 04:34 WBC 9.1 9.3 RBC 2.72 L 2.92 L Hgb 8.8 L 9.3 L Hct 26.9 L 28.5 L MCV 98.9 97.6 MCH 32.4 H 31.8 H MCHC 32.7 32.6 RDW 17.2 H 17.1 H Plt Count 237 246 MPV 9.6 9.5 Neut # (Auto) 4.7 5.4 Lymph # (Auto) 3.3 2.9 [place] # (Auto) 0.7 0.6 Eos # (Auto) 0.3 0.3 Baso # (Auto) 0.0 0.0 Absolute Nucleated RBC 0.00 0.00 Nucleated RBC % 0.0 0.0 PT INR Sodium Potassium Chloride Carbon Dioxide Anion Gap BUN Creatinine Estimated GFR (MDRD) Glucose Calcium Total Bilirubin AST ALT Alkaline Phosphatase Troponin I High Sens Total Protein Albumin Globulin Albumin/Globulin Ratio Lipase Serum HCG, Qual Urine Opiates Screen POSITIVE H Ur Oxycodone Screen NEGATIVE Urine Methadone Screen NEGATIVE Ur Propoxyphene Screen NEGATIVE Ur Barbiturates Screen NEGATIVE Ur Tricyclics Screen POSITIVE H Ur Phencyclidine Scrn NEGATIVE Ur Amphetamine Screen POSITIVE H U Methamphetamines Scrn POSITIVE H U Benzodiazepines Scrn NEGATIVE Urine Cocaine Screen NEGATIVE U Cannabinoids Screen POSITIVE H Ethyl Alcohol Blood Type Antibody Screen Crossmatch IS Only 02/26/20 02/26/20 04:34 04:34 WBC RBC Hgb Hct MCV MCH MCHC RDW Plt Count MPV Neut # (Auto) Lymph # (Auto) [place] # (Auto) Eos # (Auto) Baso # (Auto) Absolute Nucleated RBC Nucleated RBC % PT 11.4 INR 1.0 Sodium 138 Potassium 3.5 Chloride 107 Carbon Dioxide 24 Anion Gap 7.0 BUN 9 Creatinine 0.5 Estimated GFR (MDRD) 137 Glucose 99 Calcium 8.2 L Total Bilirubin AST ALT Alkaline Phosphatase Troponin I High Sens Total Protein Albumin Globulin Albumin/Globulin Ratio Lipase Serum HCG, Qual Urine Opiates Screen Ur Oxycodone Screen Urine Methadone Screen Ur Propoxyphene Screen Ur Barbiturates Screen Ur Tricyclics Screen Ur Phencyclidine Scrn Ur Amphetamine Screen U Methamphetamines Scrn U Benzodiazepines Scrn Urine Cocaine Screen U Cannabinoids Screen Ethyl Alcohol Blood Type Antibody Screen Crossmatch IS Only - DIAGNOSTIC IMAGING Diagnostic Imaging Results: Final report reviewed - FOLLOW UP Follow Up: She will be following up with her plastic surgeon this afternoon. She was asked to follow-up with her primary care provider in 1 to 2 weeks. - TIME SPENT Time Spent in Discharge (Minutes): 33
[2020-02-26 08:39] VITALS: BP 121/72
[2020-02-26] MEDS: AMOX/CLAV 875 MG/125 MG TABLET PO SCH (08:54)
[2020-02-26] MEDS: SERTRALINE 50 MG TABLET PO SCH (08:54)
[2020-02-26] MEDS: MINERAL OIL/HYDROPHIL PETROLAT 454 GM JAR TOP SCH (08:54)
[2020-02-26] MEDS: ACETAMINOPHEN 325 MG TABLET PO PRN (09:01)
== END 2020-02-26 10:40 | disposition home or self-care (01) ==
LOC: EDUNIT# → ED 03:04 → MS2 05:10
PROVIDERS: ADMIT Internal Medicine; ATTEND Internal Medicine
DX: D64.9 Anemia, unspecified (principal); I95.9 Hypotension, unspecified; R55 Syncope and collapse; S01.85XS Open bite of other part of head, sequela; W54.0XXS Bitten by dog, sequela; E78.5 Hyperlipidemia, unspecified; F32.9 Major depressive disorder, single episode, unspecified; F41.9 Anxiety disorder, unspecified; G47.00 Insomnia, unspecified; R06.00 Dyspnea, unspecified; R11.2 Nausea with vomiting, unspecified; F17.210 Nicotine dependence, cigarettes, uncomplicated; E86.0 Dehydration
CPT/HCPCS: 36415; 36430; 71045; 80048; 80053; 80306; 80320; 83690; 84484; 84703; 85025; 85610; 86850; 86900; 86901; 86920; 93005; 96374; 96375; 99284; 99285; A9270; G0378; J7120; P9016

== ENCOUNTER 2020-08-29 21:52 | Emergency (ER) | payer MEDICAID ==
--- NOTE | 2020-08-29 22:21 | ED Physician Documentation ---
PD HPI HEENT - Stated complaint Stated Complaint: FACIAL SWELLING/REDNESS - Chief complaint Chief Complaint: Heent - History obtained from History obtained from: Patient - History of Present Illness Timing - onset: How many days ago (2) Timing - duration: Days (2) Timing - details: Abrupt onset, Still present Location: Other (left cheek with redness/swelling/tender for just couple of days, increasing quickly.) Associated symptoms: No: Fever, Congestion Similar symptoms before: Diagnosis (has had prior infections on face s/p surgical repair of signficiant dogbites to face.) Recently seen: Not recently seen Review of Systems Constitutional: denies: Fever, Chills, Myalgias Nose: denies: Rhinorrhea / runny nose, Congestion Throat: denies: Sore throat Respiratory: denies: Cough Skin: reports: Lesions (left cheek for 2 days, increasing) Neurologic: denies: Generalized weakness PD PAST MEDICAL HISTORY - Past Medical History Cardiovascular: Hypertension, High cholesterol Respiratory: None Endocrine/Autoimmune: None GI: Other [employer] WORK[employer]: None : None HEENT: None Psych: Depression, Anxiety, Panic attacks Musculoskeletal: Osteoarthritis, Chronic back pain, Fibromyalgia, Other Derm: None - Past Surgical History Past Surgical History: Yes General: EGD /[employer]: Dilation and currettage, Hysterectomy HEENT: Other (Multiple facial surgeries especially to her nose and right ear due to a dog bite.) Derm: Skin grafts (To face following dog bite) - Present Medications Home Medications: Ambulatory Orders Medication Instructions Recorded Confirmed Acetaminophen [Tylenol] 650 mg PO Q6H PRN 02/25/20 02/25/20 Amox/Clav 875/125 [Augmentin 1 tab PO BID 02/25/20 02/25/20 875/125 Tab] Atorvastatin [Lipitor] 20 mg PO DAILY 02/25/20 02/25/20 HYDROmorphone [Dilaudid] 2 mg PO Q4H PRN 02/25/20 02/25/20 Ibuprofen [Motrin] 600 mg PO Q6H PRN 02/25/20 02/25/20 Quetiapine Fumarate [Seroquel] 100 mg PO QPM 02/25/20 02/25/20 Sertraline HCl [Zoloft] 150 mg PO DAILY 02/25/20 02/25/20 traZODone [Desyrel] 50 mg PO DAILY 02/25/20 02/25/20 Doxycycline Hyclate 100 mg PO BID #14 08/29/20 HYDROcod/ACETAM 5/325 [Pine Apple 5/325] 1 ea PO Q6H PRN #18 tablet 08/29/20 Naproxen Sodium [Naprelan] 375 mg PO BID PRN #20 tab 08/29/20 - Allergies Allergies/Adverse Reactions: Allergies Allergy/AdvReac Type Severity Reaction Status Date / Time gabapentin Allergy Severe Loss of Verified 08/29/20 22:04 Muscle Control tramadol Allergy Severe Dizziness/L Verified 08/29/20 22:04 ightheaded venlafaxine HCl * Allergy Severe Hallucinati Verified 08/29/20 22:04 [From Effexor] ons - Social History Does the pt smoke?: No Smoking Status: Current some day smoker Does the pt drink ETOH?: Yes Does the pt have substance abuse?: No - Immunizations Immunizations are current?: Yes - POLST Patient has POLST: No POLST Status: Full Code PD ED PE NORMAL - Vitals Vital signs reviewed: Yes - General General: Alert and oriented X 3, Well developed/nourished, Other (appears in pain from facial swelling. ) - HEENT HEENT: Moist mucous membranes, Pharynx benign, Other (multiple scars on face from prior plastic surgery repair of dogbite. Has swelling/redness and tender left cheek along site of prior scar. Fluctuance with bedside U/S showing fluid just under skin. ) - Neck Neck: Supple, no meningeal sign, No adenopathy - Cardiac Cardiac: RRR, No murmur - Respiratory Respiratory: Clear bilaterally Results - Vitals Vitals: Vital Signs - 24 hr 08/29/20 08/30/20 22:04 00:10 Temperature 36.6 C 36.9 C Heart Rate 100 93 Respiratory 16 16 Rate Blood Pressure 140/90 H 132/89 H O2 Saturation 96 94 Oxygen O2 Source Room air - Labs Labs: Microbiology 08/29/20 23:39 Wound Culture - Preliminary Face - Left Procedures - Abscess I&D (location) left facial cheek Preparation: Confirmed with ultrasound, LET Incision: Incised with scalpel, Purulent drainage, Irrigated, Culture obtained. No: Packed Other: Pt tolerated well PD MEDICAL DECISION MAKING - ED course Complexity details: considered differential (She states prior infections at area, Rx with Amox in the past. recurring facial infection in area of prior scarring from dogbite repair. I&D with fair amount purulence out and feeling less painful per patient. Cultured. Presume staph, so Rx DOxycycline. ), d/w patient Departure - Departure Disposition: 01 Home, Self Care Clinical Impression: Facial abscess Condition: Stable Record reviewed to determine appropriate education?: Yes Instructions: ED Abscess IandD Prescriptions: Doxycycline Hyclate 100 mg PO BID #14 Naproxen Sodium [Naprelan] 375 mg PO BID PRN #20 tab PRN Reason: Pain HYDROcod/ACETAM 5/325 [Pine Apple 5/325] 1 ea PO Q6H PRN #18 tablet PRN Reason: Pain Comments: The pressure and pain in the face should be improving with the drainage of the pus. Continue to try to express the purulence this evening and going home and again in the morning. The small hole I made should seal over in a day or 2 so we wanted to keep draining for now best we can. Warm moist compresses to the area can help as well. Doxycycline antibiotic twice daily as directed. We should get the culture result in a couple of days to see if that is the most optimal antibiotic. Anti-inflammatory naproxen twice daily with food. To that add hydrocodone pain medicine if needed for pain. Follow-up with your primary care or your facial specialist if not improving well over the next 2 to 3 days and return sooner if worsening. Discharge Date/Time: 08/30/20 00:12
[2020-08-29] MEDS ORDERED: LIDOCAINE-EPINEPH-TETRACAINE 3 ML SYRINGE TOP STA (22:35)
[2020-08-29] MEDS ORDERED: cefTRIAXone 1 GM VIAL IM STA (22:36)
[2020-08-29] MEDS ORDERED: LIDOCAINE 1% 2 ML VIAL MC ONE (22:36)
[2020-08-29] MEDS ORDERED: oxyCODONE 5 MG TABLET PO STA (22:36)
[2020-08-29] MEDS ORDERED: DOXYCYCLINE 100 MG TABLET PO STA (22:36)
[2020-08-30 00:12] VITALS: BP 132/89
== END 2020-08-30 00:12 | disposition home or self-care (01) ==
LOC: ED 21:52
DX: L02.01 Cutaneous abscess of face (principal); F17.200 Nicotine dependence, unspecified, uncomplicated
CPT/HCPCS: 10060; 87070; 87205; 96372; 99283; A9270